=== PATIENT | female | born 1995 | race Hispanic/Latino ===

== ENCOUNTER 2023-11-23 23:49 | Emergency (ER) | payer OTHER ==
[~2023-11-23] VITALS: Ht 152.4 cm; Wt 49.9 kg
[2023-11-24] MEDS ORDERED: ONDANSETRON ODT 4MG TAB SL ONE
[2023-11-24 00:14] LABS: SARS-CoV-2, RNA, NAAT NEGATIVE SARS CoV-2 (NEGATIVE)
[2023-11-24 00:18] LABS: INFLUENZA TYPE A Negative For Type A (NEGATIVE); INFLUENZA TYPE B Negative For Type B (NEGATIVE)
[2023-11-24 00:40] LABS: APPEARANCE,URINE CLEAR (CLEAR); BILIRUBIN,URINE NEGATIVE (NEGATIVE); COLOR,URINE YELLOW (YELLOW); GLUCOSE, URINE (UA) NEGATIVE (NEGATIVE); KETONES,URINE NEGATIVE (NEGATIVE); LEUKOCYTE ESTERASE ,URINE NEGATIVE Leu/uL (NEGATIVE); NITRATE,URINE NEGATIVE (NEGATIVE); OCCULT BLOOD,URINE MODERATE (NEGATIVE); PROTEIN,URINE 20 mg/dL (NEGATIVE); UROBILINOGEN,URINE 0.2 mg/dL (0.2-1.0)
[2023-11-24 00:42] LABS: HCG,QUALITATIVE URINE NEGATIVE (NEGATIVE)
[2023-11-24 00:44] LABS: ADD UA MICROSCOPIC YES
[2023-11-24 00:46] LABS: MUCUS,URINE RARE LPF (None Seen); RBC,URINE 26-50 /HPF (0-1); SQUAMOUS EPITHELIAL CELL,UR RARE /HPF (0-2)
[2023-11-24] MEDS ORDERED: 0.9%NACL 1000ML 1,000 ML IV SCH (02:00)
[2023-11-24] MEDS ORDERED: METOCLOPRAMIDE 10 MG/2 ML VIAL IVP ONE (02:00)
[2023-11-24] MEDS ORDERED: FAMOTIDINE 20MG VIAL IV ONE (02:00)
[2023-11-24 02:41] VITALS: BP 121/79; PULSE 90; RESP 16; O2SAT 98
== END 2023-11-24 03:09 | disposition home or self-care (01) ==
LOC: EDH 23:49
DX: R11.2 Nausea with vomiting, unspecified (principal); R19.7 Diarrhea, unspecified; Z20.822 Contact with and (suspected) exposure to COVID-19
CPT/HCPCS: 99284; 87635; 87804 ×2; 81001; 81025; 96374; 96361; 96375; J3490; J7030; J2765

== ENCOUNTER 2025-02-26 22:34 | Emergency (ER) | payer SELFPAY ==
[~2025-02-26] VITALS: Ht 152.4 cm; Wt 52.2 kg
[2025-02-26 22:35] VITALS: BP 119/78; PULSE 108; RESP 16; TEMP 99.3
--- NOTE | 2025-02-26 22:37 | NUR ---
COVID, FLU AND STREP COLLECTED AND SENT UA CUP PROVIDED
--- NOTE | 2025-02-26 22:42 | NUR ---
UA COLLECTED AND SENT FOR ANY FUTURE ORDERS
--- NOTE | 2025-02-26 22:59 | ERN ---
General Chief Complaint: Flu Symptoms Stated Complaint: FEVER, BODYACHES, CHILLS, NAUSEA Time Seen by MD: 22:36 Source: patient History of Present Illness Initial Comments 29-year-old healthy female comes in today because of new symptoms of fever chill s body aches nausea and sinus pain. She also is experiencing burning while urinating. No emesis does not feel dehydrated. Allergies: Coded Allergies: No Known Allergies (Unverified Allergy, Unknown, 11/23/23) Past Medical History Past Medical History: No Pertinent History Past Surgical History: None Constitutional: (+) chills, (+) fever, (+) weakness EENTM: (-) eye pain, (-) blurred vision, (-) tearing, (-) double vision, (-) ear pain, (-) ear discharge, (-) nose pain, (-) nose congestion, (-) throat pain, (-) Throat swelling, (-) mouth pain, (-) tooth pain, (-) mouth swelling, (-) other documentation Respiratory: (+) cough Cardiovascular: (-) chest pain, (-) edema, (-) palpitations, (-) syncope, (-) dyspnea on exertion, (-) other documentation Gastrointestinal/Abdominal: (+) nausea Musculoskeletal: (-) Neck pain, (-) back pain, (-) Flank Pain, (-) joint pain, (-) joint swelling, (-) muscle pain, (-) muscle stiffness, (-) gout, (-) other documentation Skin: (-) laceration, (-) contusion, (-) abrasion, (-) abscess, (-) rash, (-) change in color, (-) change in hair, (-) change in nails, (-) diaphoresis, (-) d ryness, (-) other documentation Neuro: (-) altered mental status, (-) headache, (-) syncope, (-) paralysis, (-) numbness, (-) seizure, (-) pre-existing deficit, (-) tremors, (-) weakness, (-) dizziness, (-) slurred speech, (-) vertigo, (-) other documentation Physical Exam General Appearance: (+) no apparent distress Head/Face Trauma: No Eye: bilateral eye normal inspection, bilateral eye PERRL, bilateral eye EOMI Ear, Nose, Throat: (+) hearing grossly normal, (+) normal ENT inspection, (+) moist mucous membraine Neck: (+) normal inspection, (+) supple, (+) full range of motion Respiratory: (+) chest non-tender, (+) lungs clear, (+) well ventilated Heart: (+) regular Vascular: (+) no edema, (+) normal peripheral pulse Gastrointestinal: (+) soft, (+) non-tender, (+) bowel sound present Results Laboratory and Microbiology Lab and Micro Result Laboratory Tests Test 02/26/25 22:40 Urine Color YELLOW (YELLOW) Urine Appearance CLEAR (CLEAR) Urine pH 7.0 (5.0-8.0) Urine Specific [place] 1.030 (1.001-1.031) Urine Protein 20 mg/dL (NEGATIVE) H Urine Glucose (UA) NEGATIVE mg/dL (NEGATIVE) Urine Ketones NEGATIVE mg/dL (NEGATIVE) Urine Occult Blood +- (TRACE) (NEGATIVE) H Urine Nitrate NEGATIVE (NEGATIVE) Urine Bilirubin NEGATIVE mg/dL (NEGATIVE) Urine Urobilinogen 2.0 mg/dL (0.2-1.0) H Urine Leukocyte Esterase NEGATIVE Luciano/uL Urine RBC 11-25 /HPF (0-1) H Urine WBC 0-1 /HPF (0-1) Urine Squamous Epithelial Cells RARE /HPF (0-2) Urine Bacteria None /HPF (None Seen) Urine HCG, Qualitative NEGATIVE (NEGATIVE) Influenza Type A Antigen Negative For Type A Influenza Type B Antigen Negative For Type B SARS-CoV-2 Antigen (Rapid) PRESUMPTIVE NEGATIVE Group A Streptococcus Rapid negative (NEGATIVE) MDM The patient's symptoms are pretty classic for a flu. The patient's mother asked if she could have Dengue fever. That certainly is on the differential although this is not the [place] of the [place] where thing a fever is common. Have been some cases reported in [place] that they would have all been travel-related. I will do the standard workup for a flu and then also get a urine analysis as the patient states she has burning when she urinates. Unfortunately the patient has left the lobby of the emergency room so I will c ancel any remaining labs and close the note. ED Course Orders Procedure Category Date Status Time Cbc With Differential LAB 02/26/25 Logged 22:59 Urinalysis Profile LAB 02/26/25 Complete 22:59 ,Urine Test LAB 02/26/25 Complete 22:59 Covid19 (Sars Antigen LAB 02/26/25 Complete Rapid) 22:59 Influenza Type A & B, LAB 02/26/25 Complete Rapid 22:59 Rapid (Group A Strep) LAB 02/26/25 Complete 22:59 Vital Signs Date Time Temp Pulse Resp B/P (MAP) Pulse Ox O2 Delivery O2 Flow Rate FiO2 02/26/25 22:35 99.3 108 16 119/78 98 Room Air DX & DISP Disposition: AMA Departure Impression: Primary Impression: URTI (acute upper respiratory infection) Condition: Stable Referrals: SELF,REFERRAL (PCP) RACHEAL OJEDA MD Feb 26, 2025 22:59
[2025-02-26 23:10] LABS: APPEARANCE,URINE CLEAR (CLEAR); BILIRUBIN,URINE NEGATIVE (NEGATIVE); COLOR,URINE YELLOW (YELLOW); GLUCOSE, URINE (UA) NEGATIVE (NEGATIVE); KETONES,URINE NEGATIVE (NEGATIVE); LEUKOCYTE ESTERASE ,URINE NEGATIVE Leu/uL (NEGATIVE); NITRATE,URINE NEGATIVE (NEGATIVE); PROTEIN,URINE 20 mg/dL (NEGATIVE)
[2025-02-26 23:11] LABS: ADD UA MICROSCOPIC YES
[2025-02-26 23:12] LABS: MUCUS,URINE RARE LPF (None Seen); SQUAMOUS EPITHELIAL CELL,UR RARE /HPF (0-2); WBC,URINE 0-1 /HPF (0-1)
[2025-02-26 23:13] LABS: HCG,QUALITATIVE URINE NEGATIVE (NEGATIVE)
[2025-02-26 23:25] LABS: RAPID GROUP A STREP negative (NEGATIVE)
--- NOTE | 2025-02-26 23:30 | NUR ---
PT CALLED FOR LABS, NO ANSWER
[2025-02-26 23:35] LABS: COVID19 (SARS ANTIGEN RAPID) PRESUMPTIVE NEGATIVE (NEGATIVE); INFLUENZA TYPE A Negative For Type A (NEGATIVE); INFLUENZA TYPE B Negative For Type B (NEGATIVE)
--- NOTE | 2025-02-26 23:40 | NUR ---
PT CALLED, NO ANSWER
--- NOTE | 2025-02-26 23:43 | NUR ---
PT CALLED, NOT IN RESTROOM OR MAIN ER, NOR IN LOBBY. DID NOT COMMUNICATE WITH STAFF ON DESIRE TO LEAVE
--- NOTE | 2025-02-26 23:50 | NUR ---
DR OJEDA AWARE OF PT ELOPEMENT
== END 2025-02-27 00:10 | disposition left against medical advice (07) ==
LOC: EDH 22:34
DX: J06.9 Acute upper respiratory infection, unspecified (principal); Z20.822 Contact with and (suspected) exposure to COVID-19
CPT/HCPCS: 81001; 81025; 87426; 87804; 87880; 99283